=== PATIENT | female | born 1960 | race Two or more races ===

== ENCOUNTER 2023-03-22 17:58 | Emergency (ER) | payer MEDICAID ==
[~2023-03-22] VITALS: Ht 157.5 cm; Wt 58.0 kg
[~2023-03-22 17:58] MED LIST: CALC1TAB MT; DICL75TA5 PO; DOCU-150 MT; ESCI20TA MT; LENV1CAP PO; LEVO25TA7 MT; MIRT7.5T11 PO; MULT-1195 MT; THIA100T72 PO
[2023-03-22 18:13] VITALS: BP 91/64; PULSE 112; RESP 20; TEMP 97.7; O2SAT 96
[2023-03-22 23:27] LABS: BASOPHILS % 0.4 % (0.0-2.0); EOSINOPHILS % 0.1 % (0.0-5.0); HEMATOCRIT. 34.5 % (36.0-48.0); HEMOGLOBIN. 10.8 g/dL (12.0-16.0); LYMPHOCYTES % 28.9 % (20.0-50.0); MEAN CORPUSCULAR HEMOGLOBIN 26.3 pg (28.0-32.0); MEAN CORPUSCULAR HGB CONC 31.4 g/dL (31.0-37.0); MEAN CORPUSCULAR VOLUME 83.7 fL (81.0-99.0); MEAN PLATELET VOLUME 7.2 fl (7.4-10.4); MONOCYTES % 8.6 % (2.0-8.0); PLATELET 122 x1000/uL (130-400); RED BLOOD CELL COUNT 4.12 mill/uL (4.2-5.4); RED CELL DISTRIBUTION WIDTH 20.1 % (11.6-14.6); WHITE BLOOD COUNT 2.5 x1000/uL (4.5-11.0)
[2023-03-22 23:40] LABS: ALANINE AMINOTRANSFERASE 36 IU/L (10-49); ASPARTATE AMINOTRANSFERASE 20 IU/L (<34); BILIRUBIN TOTAL 0.2 mg/dL (0.1-1.0); CALCIUM 9.3 mg/dL (8.7-10.4); CARBON DIOXIDE 29 mEq/L (21-32); CHLORIDE 98 mEq/L (98-107); GLUCOSE 335 mg/dL (70-105); POTASSIUM 3.8 mEq/L (3.5-5.1); PROTEIN TOTAL 6.8 g/dL (6.0-8.3); SODIUM 135 mEq/L (136-145); UREA NITROGEN BLOOD 33 mg/dL (9-23)
== END 2023-03-23 00:46 | disposition home or self-care (01) ==
LOC: ER 17:58
DX: R21 Rash and other nonspecific skin eruption (principal); D61.818 Other pancytopenia; I10 Essential (primary) hypertension; Z85.9 Personal history of malignant neoplasm, unspecified; Z79.899 Other long term (current) drug therapy
CPT/HCPCS: 36415; 80053; 85025; 99283

== ENCOUNTER 2023-05-24 16:32 | Emergency (ER) | payer MEDICAID ==
[~2023-05-24] VITALS: Ht 152.4 cm; Wt 56.0 kg
[2023-05-24 16:46] VITALS: O2SAT 100
[2023-05-24 17:18] LABS: CLARITY URINE CLEAR (CLEAR); COLOR URINE YELLOW (YELLOW); GLUCOSE URINE NEGATIVE (NEGATIVE); KETONES URINE NEGATIVE (NEGATIVE); LEUKOCYTE ESTERASE URINE TRACE (NEGATIVE); NITRITE URINE NEGATIVE (NEGATIVE); OCCULT BLOOD URINE 1+ (NEGATIVE); PH URINE 7.5 (4.5-8.0); PROTEIN URINE NEGATIVE (NEGATIVE); SPECIFIC GRAVITY URINE 1.012 (1.005-1.030); UROBILINOGEN URINE 0.2 E.U./dL (0.2-1.0)
[2023-05-24 17:39] LABS: BACTERIA URINE TRACE; SQUAMOUS EPITHELIAL CELL URINE FEW /lpf (RARE/1+)
[2023-05-24 18:07] LABS: BASOPHILS % 0.4 % (0.0-2.0); HEMATOCRIT. 28.6 % (36.0-48.0); HEMOGLOBIN. 9.1 g/dL (12.0-16.0); LYMPHOCYTES % 12.1 % (20.0-50.0); MEAN CORPUSCULAR HEMOGLOBIN 26.3 pg (28.0-32.0); MEAN CORPUSCULAR HGB CONC 31.8 g/dL (31.0-37.0); MEAN CORPUSCULAR VOLUME 82.8 fL (81.0-99.0); MEAN PLATELET VOLUME 6.6 fl (7.4-10.4); NEUTROPHILS % 83.5 % (40.0-76.0); PLATELET 296 x1000/uL (130-400); RED BLOOD CELL COUNT 3.46 mill/uL (4.2-5.4); RED CELL DISTRIBUTION WIDTH 20.3 % (11.6-14.6); WHITE BLOOD COUNT 7.7 x1000/uL (4.5-11.0)
[2023-05-24 18:24] LABS: ALANINE AMINOTRANSFERASE 21 IU/L (10-49); ALBUMIN 4.4 g/dL (3.2-4.8); ASPARTATE AMINOTRANSFERASE 19 IU/L (<34); BILIRUBIN TOTAL < 0.2 mg/dL (0.1-1.0); CALCIUM 9.2 mg/dL (8.7-10.4); CARBON DIOXIDE 29 mEq/L (21-32); CHLORIDE 103 mEq/L (98-107); CREATININE 0.8 mg/dL (0.6-1.0); GLUCOSE 181 mg/dL (70-105); POTASSIUM 4.4 mEq/L (3.5-5.1); PROTEIN TOTAL 7.8 g/dL (6.0-8.3); SODIUM 138 mEq/L (136-145); UREA NITROGEN BLOOD 18 mg/dL (9-23)
[2023-05-25 00:19] VITALS: BP 132/78; PULSE 88; RESP 18; TEMP 98.1
== END 2023-05-25 00:20 | disposition home or self-care (01) ==
LOC: ER 16:32
DX: R73.9 Hyperglycemia, unspecified (principal); I10 Essential (primary) hypertension; Z85.9 Personal history of malignant neoplasm, unspecified; Z79.899 Other long term (current) drug therapy
CPT/HCPCS: 36415; 80053; 81003; 82962; 85025; 99283

== ENCOUNTER 2024-02-17 16:32 | Inpatient (IN) | payer MEDICAID ==
[~2024-02-17] VITALS: Ht 157.5 cm; Wt 54.4 kg
[~2024-02-17 16:32] MED LIST changes: -DOCU-150 MT; +DOCU-422 MT
[2024-02-17] MEDS ORDERED: FAMOTIDINE 20MG TABLET PO ONE (17:45)
[2024-02-17] MEDS ORDERED: MAGNESIUM/ALUMINUM HYDROXIDE/SIMETHICONE 30ML UDC PO ONE (17:45)
[2024-02-17 19:14] LABS: BASOPHILS % 0.4 % (0.0-2.0); EOSINOPHILS % 0.1 % (0.0-5.0); HEMATOCRIT. 41.5 % (36.0-48.0); LYMPHOCYTES % 9.2 % (20.0-50.0); MEAN CORPUSCULAR HEMOGLOBIN 27.3 pg (28.0-32.0); MEAN CORPUSCULAR HGB CONC 33.6 g/dL (31.0-37.0); MEAN CORPUSCULAR VOLUME 81.3 fL (81.0-99.0); MEAN PLATELET VOLUME 7.2 fl (7.4-10.4); NEUTROPHILS % 86.3 % (40.0-76.0); PLATELET 214 x1000/uL (130-400); RED BLOOD CELL COUNT 5.11 mill/uL (4.2-5.4); RED CELL DISTRIBUTION WIDTH 16.9 % (11.6-14.6); WHITE BLOOD COUNT 4.5 x1000/uL (4.5-11.0)
[2024-02-17 19:27] LABS: CARBON DIOXIDE 26 mEq/L (21-32); CHLORIDE 100 mEq/L (98-107); POTASSIUM 3.8 mEq/L (3.5-5.1); SODIUM 134 mEq/L (136-145)
[2024-02-17 19:28] LABS: CALCIUM 9.3 mg/dL (8.7-10.4)
[2024-02-17 19:32] LABS: CREATININE 1.2 mg/dL (0.6-1.0); GLUCOSE 270 mg/dL (70-105)
[2024-02-17 19:33] LABS: UREA NITROGEN BLOOD 26 mg/dL (9-23)
[2024-02-17 19:34] LABS: ALANINE AMINOTRANSFERASE 46 IU/L (10-49); ALBUMIN 4.4 g/dL (3.2-4.8); ASPARTATE AMINOTRANSFERASE 46 IU/L (<34)
[2024-02-17 19:35] LABS: BILIRUBIN DIRECT 0.1 mg/dL (<=3.0); BILIRUBIN TOTAL 0.5 mg/dL (0.1-1.0); PROTEIN TOTAL 7.3 g/dL (6.0-8.3)
[2024-02-17 19:36] LABS: TROPONIN I HIGH SENSITIVITY < 4 ng/L (3.0-34)
[2024-02-17] MEDS: FAMOTIDINE 20MG TABLET PO NR (21:50)
[2024-02-17] MEDS: MAGNESIUM/ALUMINUM HYDROXIDE/SIMETHICONE 30ML UDC PO NR (21:50)
[2024-02-18] MEDS: SODIUM CHLORIDE 0.9% 1,000 ML IV ONE (04:57)
[2024-02-18 06:00] VITALS: BP 133/78; PULSE 93; RESP 18; TEMP 36.5292
[2024-02-18] MEDS ORDERED: DEXTROSE 50% WATER 50ML SYRINGE IV PRN (06:30)
[2024-02-18] MEDS: BLOOD SUGAR DIAGNOSTIC STRIP TEST SCH (06:55)
[2024-02-18] MEDS: INSULIN LISPRO 100 UNITS/ML SUBCUT SCH (07:50)
[2024-02-18 08:00] VITALS: BP 107/70; PULSE 85; RESP 19; TEMP 36.61404; O2SAT 95
[2024-02-18] MEDS: FAMOTIDINE 20MG TABLET PO SCH (08:58)
[2024-02-18 12:33] VITALS: BP 108/71; PULSE 67; RESP 18; TEMP 36.61404; O2SAT 98
[2024-02-18 13:12] LABS: CARBON DIOXIDE 27 mEq/L (21-32); CHLORIDE 103 mEq/L (98-107); POTASSIUM 3.6 mEq/L (3.5-5.1)
[2024-02-18 13:13] LABS: CALCIUM 8.5 mg/dL (8.7-10.4); SODIUM 137 mEq/L (136-145)
[2024-02-18 13:18] LABS: CREATININE 0.8 mg/dL (0.6-1.0); GLUCOSE 229 mg/dL (70-105)
[2024-02-18 13:19] LABS: BASOPHILS % 0.5 % (0.0-2.0); EOSINOPHILS % 1.4 % (0.0-5.0); HEMATOCRIT. 34.7 % (36.0-48.0); HEMOGLOBIN. 11.6 g/dL (12.0-16.0); LDL CHOLESTEROL 125 mg/dL (5-100); LYMPHOCYTES % 28.2 % (20.0-50.0); MEAN CORPUSCULAR HEMOGLOBIN 26.7 pg (28.0-32.0); MEAN CORPUSCULAR HGB CONC 33.4 g/dL (31.0-37.0); MEAN CORPUSCULAR VOLUME 80.1 fL (81.0-99.0); MEAN PLATELET VOLUME 7.3 fl (7.4-10.4); MONOCYTES % 7.5 % (2.0-8.0); NEUTROPHILS % 62.4 % (40.0-76.0); PLATELET 165 x1000/uL (130-400); RED BLOOD CELL COUNT 4.33 mill/uL (4.2-5.4); RED CELL DISTRIBUTION WIDTH 16.4 % (11.6-14.6); TRIGLYCERIDE 172 mg/dL (0-150); UREA NITROGEN BLOOD 25 mg/dL (9-23); WHITE BLOOD COUNT 2.8 x1000/uL (4.5-11.0)
[2024-02-18 13:20] LABS: CHOLESTEROL 210 mg/dL (<200)
[2024-02-18 13:21] LABS: HDL CHOLESTEROL 59 mg/dL (>65)
[2024-02-18 15:58] VITALS: BP 116/71; PULSE 88; RESP 20; TEMP 36.61404; O2SAT 99
[2024-02-18 19:53] LABS: CLARITY URINE CLEAR (CLEAR); COLOR URINE YELLOW (YELLOW); GLUCOSE URINE 1+ (NEGATIVE); KETONES URINE TRACE (NEGATIVE); LEUKOCYTE ESTERASE URINE 1+ (NEGATIVE); NITRITE URINE NEGATIVE (NEGATIVE); OCCULT BLOOD URINE TRACE (NEGATIVE); PH URINE 6.5 (4.5-8.0); PROTEIN URINE 1+ (NEGATIVE); SPECIFIC GRAVITY URINE 1.032 (1.005-1.030); UROBILINOGEN URINE 0.2 E.U./dL (0.2-1.0)
[2024-02-18 20:00] VITALS: BP 108/71; PULSE 90; RESP 18; TEMP 36.3918; O2SAT 100
[2024-02-18 20:15] LABS: BACTERIA URINE 1+; SQUAMOUS EPITHELIAL CELL URINE NONE SEEN /lpf (RARE/1+)
[2024-02-19] VITALS: BP 105/68; PULSE 88; RESP 18; TEMP 36.6696; O2SAT 98
[2024-02-19 04:00] VITALS: BP 96/55; PULSE 87; RESP 18; TEMP 36.55848; O2SAT 99
[2024-02-19 08:06] VITALS: BP 120/74; PULSE 95; RESP 18; TEMP 36.114; O2SAT 100
[2024-02-19] MEDS ORDERED: IOHEXOL-350 100 ML BOTTLE ONE (08:32)
[2024-02-19 12:00] VITALS: BP 105/67; PULSE 85; RESP 18; TEMP 36.114; O2SAT 98
[2024-02-19 16:13] VITALS: BP 114/72; PULSE 86; RESP 18; TEMP 36.114; O2SAT 99
[2024-02-19 20:00] VITALS: BP 132/72; PULSE 90; RESP 18; TEMP 36.28068; O2SAT 100
[2024-02-19] MEDS: ATORVASTATIN CALCIUM 40MG TABLET PO SCH (20:41)
[2024-02-19] MEDS: CEFTRIAXONE 1GM/50ML 50 ML IV SCH (22:25)
[2024-02-20 04:00] VITALS: BP 100/55; PULSE 80; RESP 18; TEMP 36.22512; O2SAT 100
[2024-02-20 08:00] VITALS: BP 123/74; PULSE 87; RESP 20; TEMP 36.44736; O2SAT 100
[2024-02-20 08:10] LABS: PHOSPHORUS 3.1 mg/dL (2.5-4.9)
[2024-02-20 12:00] VITALS: BP 123/71; PULSE 86; RESP 18; TEMP 36.3918; O2SAT 100
[2024-02-20 16:00] VITALS: BP 124/74; PULSE 85; RESP 20; TEMP 36.44736; O2SAT 100
[2024-02-20 20:00] VITALS: BP 144/84; PULSE 90; RESP 18; TEMP 36.6696; O2SAT 98
[2024-02-21 04:00] VITALS: BP 127/78; PULSE 78; RESP 18; TEMP 36.50292; O2SAT 99
[2024-02-21 07:06] LABS: CHLORIDE 108 mEq/L (98-107); POTASSIUM 4.5 mEq/L (3.5-5.1); SODIUM 142 mEq/L (136-145)
[2024-02-21 07:07] LABS: CARBON DIOXIDE 29 mEq/L (21-32)
[2024-02-21 07:08] LABS: CALCIUM 9.1 mg/dL (8.7-10.4)
[2024-02-21 07:12] LABS: CREATININE 0.9 mg/dL (0.6-1.0); GLUCOSE 126 mg/dL (70-105); UREA NITROGEN BLOOD 15 mg/dL (9-23)
[2024-02-21 07:19] LABS: BASOPHILS % 0.6 % (0.0-2.0); EOSINOPHILS % 1.9 % (0.0-5.0); HEMATOCRIT. 34.5 % (36.0-48.0); HEMOGLOBIN. 11.4 g/dL (12.0-16.0); LYMPHOCYTES % 46.7 % (20.0-50.0); MEAN CORPUSCULAR HEMOGLOBIN 26.4 pg (28.0-32.0); MEAN CORPUSCULAR HGB CONC 32.9 g/dL (31.0-37.0); MEAN CORPUSCULAR VOLUME 80.4 fL (81.0-99.0); MEAN PLATELET VOLUME 6.9 fl (7.4-10.4); MONOCYTES % 13.1 % (2.0-8.0); NEUTROPHILS % 37.7 % (40.0-76.0); PLATELET 174 x1000/uL (130-400); RED BLOOD CELL COUNT 4.29 mill/uL (4.2-5.4); RED CELL DISTRIBUTION WIDTH 16.7 % (11.6-14.6); WHITE BLOOD COUNT 3.3 x1000/uL (4.5-11.0)
[2024-02-21 08:00] VITALS: BP 117/72; PULSE 82; RESP 18; TEMP 36.72516; O2SAT 99
[2024-02-21 12:00] VITALS: BP 121/69; PULSE 79; RESP 19; TEMP 36.72516; O2SAT 99
[2024-02-21 16:00] VITALS: BP 120/66; PULSE 77; RESP 19; TEMP 36.50292; O2SAT 100
[2024-02-21 20:11] VITALS: BP 120/73; PULSE 87; RESP 20; TEMP 36.44736; O2SAT 100
[2024-02-22 00:09] VITALS: BP 134/80; PULSE 83; RESP 20; TEMP 36.6696; O2SAT 98
[2024-02-22 04:08] VITALS: BP 104/59; PULSE 82; RESP 19; TEMP 36.33624; O2SAT 82
[2024-02-22 08:00] VITALS: BP 122/78; PULSE 90; RESP 18; TEMP 35.5584; O2SAT 100
[2024-02-22 12:00] VITALS: BP 118/65; PULSE 87; RESP 20; TEMP 35.94732; O2SAT 100
[2024-02-22 12:09] VITALS: BP 122/78; PULSE 90; TEMP 97; O2SAT 97
== END 2024-02-22 13:40 | disposition home or self-care (01) | DRG 48 ==
LOC: ER 16:32 → 6WST 22:08 → EDBEDREQ 22:42 → EDBEDREQTM 22:42
PROVIDERS: ADMIT Internal Medicine; ATTEND Internal Medicine
DX: G90.89 Other disorders of autonomic nervous system (principal); N17.0 Acute kidney failure with tubular necrosis; I10 Essential (primary) hypertension; F32.A Depression, unspecified; E86.0 Dehydration; E11.65 Type 2 diabetes mellitus with hyperglycemia; E03.9 Hypothyroidism, unspecified; Z85.528 Personal history of other malignant neoplasm of kidney; Z85.42 Personal history of malignant neoplasm of other parts of uterus; Z90.710 Acquired absence of both cervix and uterus; Z79.899 Other long term (current) drug therapy
CPT/HCPCS: 36415; 71045; 71260; 74177; 80048; 80061; 80076; 81003; 82962; 83036; 83735; 84100; 84484; 85025; 93005; 97161; 99285; J0696; J1815; J7030; Q9967